=== PATIENT | female | born 1960 | race Caucasian/White ===

== ENCOUNTER 2017-11-13 01:23 | Emergency (ER) | payer OTHER ==
[2017-11-13] MEDS ORDERED: SODIUM CHLORIDE 0.9% 1,000 ML IV ONE (02:11)
[2017-11-13] MEDS ORDERED: MORPHINE SULFATE 4 MG/ML SYRINGE IVP STA ×2 (02:11→03:27)
[2017-11-13 02:41] LABS: Basophils # (A) 0.1 k/uL (0-0.2); Basophils % (A) 1 %; Eosinophils # (A) 0.2 k/uL (0-0.7); Eosinophils % (A) 2 %; HCT 33.5 % (34.0-46.0); HGB 11.1 gm/dL (11.4-16.0); Lymphocytes # (A) 2.3 k/uL (1.0-4.8); Lymphocytes % (A) 28 %; MCH 28.7 pg (25.0-35.0); MCHC 33.2 g/dL (31.0-37.0); MCV 86.5 fL (80.0-100.0); Mean Platelet Volume 7.3; Monocytes # (A) 0.3 k/uL (0-1.0); Monocytes % (A) 4 %; Neutrophils # (A) 5.2 k/uL (1.3-7.7); Neutrophils % (A) 64 %; Platelet Count 298 k/uL (150-450); RBC 3.87 m/uL (3.80-5.40); RDW 13.4 % (11.5-15.5); WBC 8.1 k/uL (3.8-10.6)
[2017-11-13 02:59] LABS: Albumin 4.7 g/dL (3.5-5.0); Calcium 10.3 mg/dL (8.4-10.2); Total Bilirubin 0.2 mg/dL (0.2-1.3); Total Protein 7.3 g/dL (6.3-8.2)
[2017-11-13 03:06] LABS: Amorphous Sediment,Urine Rare /hpf; Appearance,Urine Clear (Clear); Bacteria,Urine Rare /hpf; Bilirubin,Urine Negative (Negative); Blood,Urine Negative (Negative); Color,Urine Yellow; Glucose,Urine (UA) Negative (Negative); Ketones,Urine Negative (Negative); Leukocyte Esterase,Urine Large (Negative); Nitrite,Urine Negative (Negative); PH, Urine 6.5 (5.0-8.0); Protein,Urine Negative (Negative); RBC,Urine 1 /hpf (0-5); Squamous Epithelial Cell,Urine 1 /hpf (0-4); Urobilinogen,Urine <2.0 mg/dL (<2.0); WBC,Urine 8 /hpf (0-5)
[2017-11-13] MEDS ORDERED: ORPHENADRINE 30 MG/ML 2 ML VIAL IVP STA ×2 (03:19→04:36)
--- NOTE | 2017-11-13 04:22 | CT ---
EXAM: CT Abdomen and Pelvis Without Intravenous Contrast CLINICAL HISTORY: ITS.REASON CT Reason: Pain TECHNIQUE: Axial computed tomography images of the abdomen and pelvis without intravenous contrast. CTDI is 32.50 mGy and DLP is 1520.90 mGy-cm. This CT exam was performed using one or more of the following dose reduction techniques: automated exposure control, adjustment of the mA and/or kV according to patient size, and/or use of iterative reconstruction technique. COMPARISON: No relevant prior studies available. FINDINGS: Lung bases: Unremarkable. No mass. No consolidation. ABDOMEN: Liver: Unremarkable. Gallbladder and bile ducts: Unremarkable. No calcified stones. No ductal dilation. Pancreas: Unremarkable. No ductal dilation. Spleen: Unremarkable. No splenomegaly. Adrenals: Unremarkable. No mass. Kidneys and ureters: Unremarkable. No obstructing stones. No hydronephrosis. Stomach and bowel: Sigmoid diverticulosis without active inflammation. No obstruction. No mucosal thickening. PELVIS: Appendix: Normal appendix. Bladder: Unremarkable. No stones. Reproductive: Unremarkable as visualized. ABDOMEN and PELVIS: Intraperitoneal space: Unremarkable. No free air. No significant fluid collection. Bones/joints: Multilevel spondylotic changes over the thoracolumbar spine. No acute fracture. No dislocation. Soft tissues: Unremarkable. Vasculature: Unremarkable. No abdominal aortic aneurysm. Lymph nodes: Unremarkable. No enlarged lymph nodes. IMPRESSION: No acute intra-abdominal or intrapelvic process. Sigmoid diverticulosis noted.
[2017-11-13] MEDS ORDERED: ACET/COD 300 MG/30 MG STARTER PACK 6 TAB BTL PO STA (04:35)
--- NOTE | 2017-11-13 04:36 | ED ---
Back Pain HPI - General Chief Complaint: Back Pain/Injury Stated Complaint: Back Pain Time Seen by Provider: 11/13/17 01:54 Source: patient Limitations: physical limitation - History of Present Illness Initial Comments: 57-year-old female patient presents to the emergency department today for complaints of right flank to low back pain. Patient states that this started approximate hour prior to arrival. Patient states that it started suddenly. Patient states it hurts worse with movement and deep breathing. States that the pain is making her nauseated. She denies any radiation of the pain down her legs. Denies any numbness or tingling. Denies any saddle anesthesia. She denies any hematuria, dysuria, urinary frequency, urinary urgency. She denies any fevers or chills. She does any history of low back pain. States that she did lift a heavy box earlier today. Patient denies any recent rash, shortness breath, chest pain, abdominal pain, vomiting, diarrhea, constipation, dizziness , weakness, headache, visual changes, or any other complaints. - Related Data Home Medications Medication Instructions Recorded Confirmed Ascorbic Acid [Vitamin C] 1,000 mg PO DAILY 05/18/15 08/08/15 Atorvastatin [Lipitor] 10 mg PO DAILY 05/18/15 08/08/15 Cetirizine HCl [Zyrtec] 10 mg PO DAILY 05/18/15 08/08/15 Cholecalciferol [Vitamin D3] 2,000 unit PO DAILY 05/18/15 08/08/15 Citalopram Hydrobromide [CeleXA] 20 mg PO DAILY 05/18/15 08/08/15 Diphenox-Atrop 2.5-0.025 mg 1 tab PO BID PRN 05/18/15 08/08/15 [Lomotil] Fluticasone Nasal [place] [Flonase 1 spray EA NOSTRIL BID 05/18/15 08/08/15 Nasal [place]] Lisinopril 40 mg PO DAILY 05/18/15 08/08/15 Vitamin E (Dl,Tocopheryl Acet) 400 unit PO DAILY 05/18/15 08/08/15 [Vitamin E] traMADol HCl [Ultram] 50 mg PO Q6H PRN 05/18/15 08/08/15 Hydrochlorothiazide 12.5 mg PO DAILY 06/21/15 08/08/15 Amoxicillin 500 mg PO Q12HR 08/05/15 08/08/15 HYDROcodone/APAP 5-325MG [[place] 1 - 2 tab PO Q6HR PRN 08/05/15 08/08/15 5-325] Meloxicam 15 mg PO DAILY 08/05/15 08/08/15 Pantoprazole Sodium [Protonix] 40 mg PO DAILY PRN 08/05/15 08/08/15 guaiFENesin [Mucinex] 600 mg PO BID PRN 08/05/15 08/08/15 Previous Rx's Medication Instructions Recorded Cyclobenzaprine [Flexeril] 10 mg PO TID #15 tab 11/13/17 Allergies Allergy/AdvReac Type Severity Reaction Status Date / Time Sulfa (Sulfonamide Allergy Unknown Verified 11/13/17 01:48 Antibiotics) Review of Systems ROS Statement: Those systems with pertinent positive or pertinent negative responses have been documented in the HPI. ROS Other: All systems not noted in ROS Statement are negative. Past Medical History Past Medical History: GERD/Reflux, Hyperlipidemia, Hypertension, Osteoarthritis (OA), Renal Disease Additional Past Medical History / Comment(s): diverticulitis ibs, recent blood in stools, seasonal allergies. just started antibiotics for cough & congestion, kidney failure stage three History of Any Multi-Drug Resistant Organisms: None Reported Past Surgical History: Breast Surgery, Orthopedic Surgery, Tonsillectomy, Tubal Ligation Additional Past Surgical History / Comment(s): nasal surg lumpectomy, bilateral knee arthroscopies, Past Anesthesia/Blood Transfusion Reactions: No Reported Reaction Past Psychological History: Anxiety, Depression Smoking Status: Never smoker Past Alcohol Use History: Occasional Past Drug Use History: None Reported - Past Family History Father History Unknown: Yes Family Medical History: Myocardial Infarction (ND) Mother History Unknown: Yes Family Medical History: Cancer, Diabetes Mellitus, Hypertension General Exam Limitations: physical limitation General appearance: alert, in no apparent distress, other (This is a well- developed, well-nourished, obese female patient in no acute distress. Vital signs upon presentation are temperature 97.3F, pulse 81, respirations 18, blood pressure 166/81, pulse ox 98% on room air.) Eye exam: Present: normal appearance, PERRL, EOMI. Absent: scleral icterus, conjunctival injection, periorbital swelling ENT exam: Present: normal exam, normal oropharynx, mucous membranes moist Respiratory exam: Present: normal lung sounds bilaterally. Absent: respiratory distress, wheezes, rales, rhonchi, stridor Cardiovascular Exam: Present: regular rate, normal rhythm, normal heart sounds. Absent: systolic murmur, diastolic murmur, rubs, gallop, clicks GI/Abdominal exam: Present: soft, normal bowel sounds. Absent: distended, tenderness, guarding, rebound, rigid Back exam: Present: normal inspection, tenderness (Right flank, right lower back ) Neurological exam: Present: alert, oriented X3, CN II-XII intact Psychiatric exam: Present: normal affect, normal mood Skin exam: Present: warm, dry, intact, normal color. Absent: rash Course Vital Signs 11/13/17 11/13/17 01:44 03:34 Temperature 97.3 F L Pulse Rate 81 78 Respiratory 18 20 Rate Blood Pressure 166/81 158/84 O2 Sat by Pulse 98 95 Oximetry Medical Decision Making - Medical Decision Making 57-year-old female patient presents to the emergency department today for complaints of right flank and right lower back pain. Physical examination is unremarkable. Abdomen is soft and nontender. Labs reviewed and were unremarkable. Patient does have a chronically elevated BUN and creatinine. Urinalysis showed a large leukocyte esterase, 8 white blood cells, rare amorphous sediment, and rare urine bacteria. CT scanning of the abdomen and pelvis without contrast was obtained to evaluate for kidney stone. There is no evidence of kidney stone or hydronephrosis. Remainder of the exam is also unremarkable. Patient was informed of findings. I discussed her pain is most likely musculoskeletal in nature. We will treat with muscle relaxers. Patient did have 120 [place] filled on 10/18/2017. Patient will be given a starter pack for Tylenol 3 as she is out of this medication, I did inform her that all narcotic prescriptions should be filled by her primary care physician. Return parameters were discussed in detail. She verbalizes understanding and agreed with this plan. - Lab Data Result diagrams: 11/13/17 02:25 11/13/17 02:25 Lab Results 11/13/17 11/13/17 11/13/17 Range/Units 02:25 02:25 02:40 WBC 8.1 (3.8-10.6) k/uL RBC 3.87 (3.80-5.40) m/uL Hgb 11.1 L (11.4-16.0) gm/dL Hct 33.5 L (34.0-46.0) % MCV 86.5 (80.0-100.0) fL MCH 28.7 (25.0-35.0) pg MCHC 33.2 (31.0-37.0) g/dL RDW 13.4 (11.5-15.5) % Plt Count 298 (150-450) k/uL Neutrophils % 64 % Lymphocytes % 28 % Monocytes % 4 % Eosinophils % 2 % Basophils % 1 % Neutrophils # 5.2 (1.3-7.7) k/uL Lymphocytes # 2.3 (1.0-4.8) k/uL Monocytes # 0.3 (0-1.0) k/uL Eosinophils # 0.2 (0-0.7) k/uL Basophils # 0.1 (0-0.2) k/uL Sodium 144 (137-145) mmol/L Potassium 4.0 (3.5-5.1) mmol/L Chloride 105 (98-107) mmol/L Carbon Dioxide 22 (22-30) mmol/L Anion Gap 17 mmol/L BUN 30 H (7-17) mg/dL Creatinine 1.30 H (0.52-1.04) mg/dL Est GFR (CKD-EPI)AfAm 52 (>60 ml/min/1.73 sqM) Est GFR (CKD-EPI)NonAf 45 (>60 ml/min/1.73 sqM) Glucose 109 H (74-99) mg/dL Calcium 10.3 H (8.4-10.2) mg/dL Total Bilirubin 0.2 (0.2-1.3) mg/dL AST 21 (14-36) U/L ALT 18 (9-52) U/L Alkaline Phosphatase 64 (38-126) U/L Total Protein 7.3 (6.3-8.2) g/dL Albumin 4.7 (3.5-5.0) g/dL Amylase 82 (30-110) U/L Lipase 325 H (23-300) U/L Urine Color Yellow Urine Appearance Clear (Clear) Urine pH 6.5 (5.0-8.0) Ur Specific [place] 1.020 (1.001-1.035) Urine Protein Negative (Negative) Urine Glucose (UA) Negative (Negative) Urine Ketones Negative (Negative) Urine Blood Negative (Negative) Urine Nitrite Negative (Negative) Urine Bilirubin Negative (Negative) Urine Urobilinogen <2.0 (<2.0) mg/dL Ur Leukocyte Esterase Large H (Negative) Urine RBC 1 (0-5) /hpf Urine WBC 8 H (0-5) /hpf Ur Squamous Epith Cells 1 (0-4) /hpf Amorphous Sediment Rare H (None) /hpf Urine Bacteria Rare H (None) /hpf - Radiology Data Radiology results: report reviewed, image reviewed CT of the abdomen and pelvis without contrast was obtained. Report was reviewed in its entirety. Impression by Dr. Magaña shows no acute intra- abdominal or intrapelvic process. Sigmoid diverticulosis noted. Disposition Clinical Impression: Acute low back pain Disposition: HOME SELF-CARE Instructions: Acute Low Back Pain (ED) Additional Instructions: Apply warm compresses to the right lower back. Take medications as directed. Follow-up with your primary care physician for further evaluation. Return here immediately for any new, worsening, or concerning symptoms. Prescriptions: Cyclobenzaprine [Flexeril] 10 mg PO TID #15 tab Is patient prescribed a controlled substance at d/c from ED?: No Referrals: David Connell DO [Primary Care Provider] - 1-2 days Time of Disposition: 04:35
[2017-11-13 04:54] VITALS: BP 161/83; PULSE 76; RESP 18; TEMP 98.2
== END 2017-11-13 05:04 | disposition home or self-care (01) ==
LOC: EC 01:23
DX: M54.5 Low back pain (principal); R10.9 Unspecified abdominal pain; I13.10 Hypertensive heart and chronic kidney disease without heart failure, with stage 1 through stage 4 chronic kidney disease, or unspecified chronic kidney disease; N18.3 Chronic kidney disease, stage 3 (moderate); E78.5 Hyperlipidemia, unspecified; M19.90 Unspecified osteoarthritis, unspecified site; F41.9 Anxiety disorder, unspecified; F32.9 Major depressive disorder, single episode, unspecified; Z79.899 Other long term (current) drug therapy; Z79.51 Long term (current) use of inhaled steroids; Z79.1 Long term (current) use of non-steroidal anti-inflammatories (NSAID); Z88.2 Allergy status to sulfonamides
CPT/HCPCS: 36415; 80053; 82150; 83690; 85025; 81001; 74176; 99284; 96374; 96375; 96376; 96361 ×2; J2270; J2360

== ENCOUNTER → 2018-02-17 | Outpatient (CLI) | payer OTHER ==
--- NOTE | 2018-02-18 14:23 | MM ---
Reason for exam: additional evaluation requested from prior study. Last mammogram was performed 3 years ago. History: Patient is postmenopausal. Benign US biopsy breast VAD LT of the left breast, March 03, 2015. Benign US biopsy breast add'l VAD LT of the left breast, March 03, 2015. Took progesterone for 15 years. Physical Findings: Nurse did not find any significant physical abnormalities on exam. MG Diagnostic Mammo w CAD LETI Bilateral CC and MLO view(s) were taken. Prior study comparison: March 03, 2015, left breast MG diagnostic mammo LT wo CAD. March 03, 2015, bilateral MG diagnostic mammo w CAD LETI. The breast tissue is heterogeneously dense. This may lower the sensitivity of mammography. Finding: There are benign calcifications in both breasts. No suspicious abnormality. Left breast biopsy markers noted. No significant new finding since 2014. These results were verbally communicated with the patient and result sheet given to the patient on 02/17/18 ASSESSMENT: Benign, BI-RAD 2 RECOMMENDATION: Routine screening mammogram of both breasts in 1 year.
== END | disposition home or self-care (01) ==
LOC: RADMAMWWP 13:37
PROVIDERS: ATTEND Family Medicine
DX: R92.8 Other abnormal and inconclusive findings on diagnostic imaging of breast (principal)
CPT/HCPCS: 77066

== ENCOUNTER → 2020-02-06 | Outpatient (CLI) | payer BC, OTHER | END | disposition home or self-care (01) | LOC: LABWHC1 10:30 | PROVIDERS: ATTEND Family Medicine | DX: Z20.828 Contact with and (suspected) exposure to other viral communicable diseases (principal) | CPT/HCPCS: U0003; C9803 ==

== ENCOUNTER → 2020-10-02 | Outpatient (CLI) | payer BC | END | disposition home or self-care (01) | LOC: LABWHC1 16:26 | PROVIDERS: ATTEND Family Medicine | DX: Z20.822 Contact with and (suspected) exposure to COVID-19 (principal) | CPT/HCPCS: U0003; C9803; U0005 ==

== ENCOUNTER → 2023-11-04 | Outpatient (CLI) | payer MEDICARE ==
--- NOTE | 2023-11-05 07:30 | US ---
EXAMINATION TYPE: US kidneys/renal and bladder DATE OF EXAM: 11/04/2023 COMPARISON: CT 11/13/2017 CLINICAL INDICATION: Female, 63 years old with history of N18.30 CKD; Abnormal labs; Patient denies a ny other signs or symptoms; Hx HTn EXAM MEASUREMENTS: Right Kidney: 7.8 x 4.2 x 3.5 cm Left Kidney: 8.5 x 4.1 x 4.5 cm Post Void Residual Volume: NA m Right Kidney: WNL Left Kidney: WNL Bladder: Not distended/ not visualized Bilateral Jets seen: No Normal Post Void Residual: NA There is no evidence for hydronephrosis at this point in time. No nephrolithiasis is seen. No shantel s are identified. Incidental: ? Right ovarian cyst IMPRESSION: 1. No solid renal mass, nephrolithiasis or hydronephrosis. 2. Urinary bladder not evaluated due to nondistention.
== END | disposition home or self-care (01) ==
LOC: RADUSWWP 14:07
PROVIDERS: ATTEND Family Medicine
DX: I12.9 Hypertensive chronic kidney disease with stage 1 through stage 4 chronic kidney disease, or unspecified chronic kidney disease (principal); N18.30 Chronic kidney disease, stage 3 unspecified; R79.9 Abnormal finding of blood chemistry, unspecified
CPT/HCPCS: 76770